=== PATIENT | male | born 1950 | race Caucasian/White ===

== ENCOUNTER 2017-05-03 19:46 | Emergency (ER) | payer OTHER ==
[~2017-05-03] VITALS: Ht 175.3 cm; Wt 84.7 kg
[~2017-05-03 19:46] MED LIST: ALEVE220 MG PO; ASPIR 8181 M1 PO; ASPIR-TRIN325 M1 PO; CLARITIN10 M3 PO; CLOPIDOGREL75 MG PO; CRESTOR20 MG PO; DURAGESIC100 MCG TD; FAMOTIDINE20 MG PO; FISH OIL 1,0001 EAC7 PO; METOPROLOL TART25 MG PO; NITROSTAT0.4 MG SL; NORCO 5/3251 TABLET PO; PRILOSEC OTC20 MG PO; VALIUM5 MG PO
[2017-05-03 20:01] VITALS: BP 168/82
[2017-05-03] MEDS ORDERED: KEFLEX500 MG PO (20:28)
== END 2017-05-03 21:15 | disposition home or self-care (01) ==
LOC: EME 19:46
DX: R59.1 Generalized enlarged lymph nodes (principal); Z79.82 Long term (current) use of aspirin
CPT/HCPCS: 99281; 99284

== ENCOUNTER 2017-06-11 04:56 | Emergency (ER) | payer OTHER ==
[~2017-06-11] VITALS: Ht 175.3 cm; Wt 86.0 kg
[~2017-06-11 04:56] MED LIST changes: +KEFLEX500 MG PO
[2017-06-11 05:42] LABS: CHLORIDE 105 mEq/L (99-109); POTASSIUM 4.2 mEq/L (3.7-5.4); SODIUM 140 mEq/L (136-147)
[2017-06-11 05:43] LABS: GLUCOSE 109 mg/dL (70-99)
[2017-06-11 05:45] LABS: ANION GAP 11 MEQ/L (2-14)
[2017-06-11 05:47] LABS: GFR ESTIMATE (CALCULATED) > 59 mL/min/
[2017-06-11 05:48] LABS: UREA NITROGEN (BUN) 21 mg/dL (9-23)
[2017-06-11 05:52] LABS: TROP-I INTERPRETATION NEGATIVE; TROPONIN-I < 0.01 ng/mL (0.0-0.30)
[2017-06-11 05:53] LABS: HEMATOCRIT 45.3 % (38.0-50.0); MCH 29.4 PG (29.0-34.0); MCHC 33.8 G/DL (30.0-36.0); MCV 87.1 FL (86-99); MEAN PLAT.VOLUME 9.4 uM^3 (9.0-12.4); PLATELET COUNT 230 K/uL (156-360); RBC DIS.WIDTH-CV 13.1 % (11.8-14.6); RBC DIS.WIDTH-SD 41.3 % (39-53); WHITE BLOOD COUNT 6.1 K/uL (4.1-10.2)
[2017-06-11] MEDS ORDERED: LIDODERM 5% P1 PATCH TD (06:32)
[2017-06-11] MEDS ORDERED: VALIUM5 MG PO (06:32)
[2017-06-11 07:50] LABS: TROP-I INTERPRETATION NEGATIVE; TROPONIN-I < 0.01 ng/mL (0.0-0.30)
[2017-06-11] MEDS ORDERED: PANTOPRAZOLE SO40 MG PO (08:03)
[2017-06-11 08:20] VITALS: BP 143/77
== END 2017-06-11 08:36 | disposition home or self-care (01) ==
LOC: EME 04:56
PROVIDERS: Emergency Medicine
DX: R07.89 Other chest pain (principal); I10 Essential (primary) hypertension; I25.2 Old myocardial infarction; K21.9 Gastro-esophageal reflux disease without esophagitis; Z87.442 Personal history of urinary calculi; Z98.1 Arthrodesis status; Z98.61 Coronary angioplasty status; Z79.02 Long term (current) use of antithrombotics/antiplatelets; Z79.82 Long term (current) use of aspirin
CPT/HCPCS: 71020; 80048; 84484; 85027; 85379; 93005; 99281; 99285; J1885; J2060; J7030

== ENCOUNTER 2017-08-22 05:20 | Emergency (ER) | payer OTHER ==
[~2017-08-22] VITALS: Ht 175.3 cm; Wt 84.8 kg
[~2017-08-22 05:20] MED LIST changes: +LIDODERM 5% P1 PATCH TD; +PANTOPRAZOLE SO40 MG PO
[2017-08-22] MEDS ORDERED: VOLTAREN 1% GE100 GM TP (07:40)
[2017-08-22 08:04] VITALS: BP 130/74
== END 2017-08-22 08:06 | disposition home or self-care (01) ==
LOC: EME 05:20
DX: S43.401A Unspecified sprain of right shoulder joint, initial encounter (principal); X50.9XXA Other and unspecified overexertion or strenuous movements or postures, initial encounter; Y93.89 Activity, other specified; I25.2 Old myocardial infarction; Z95.5 Presence of coronary angioplasty implant and graft; Z86.73 Personal history of transient ischemic attack (TIA), and cerebral infarction without residual deficits; Z79.82 Long term (current) use of aspirin; Z88.2 Allergy status to sulfonamides; Z88.0 Allergy status to penicillin; Z88.5 Allergy status to narcotic agent
CPT/HCPCS: 73030; 99281; 99283